=== PATIENT | female | born 1990 | race Caucasian/White ===

== ENCOUNTER 2017-01-24 18:47 | Emergency (ER) | payer OTHER ==
[~2017-01-24] VITALS: Ht 177.8 cm; Wt 75.9 kg
[~2017-01-24 18:47] MED LIST: CARBAMAZEPINE100 MG PO; ENDOCET 5-3251 EACH PO; EXCEDRIN MIGRA1 EAC3 PO; IBUPROFEN800 MG PO; PROAIR HFA8.5 GM AEROSOL; PROAIR HFA8.5 GM IH
[2017-01-24 19:58] LABS: HEMATOCRIT 44.6 % (36.0-46.0); MCH 29.8 PG (29.0-34.0); MCV 90.5 FL (83-99); PLATELET COUNT 203 K/uL (156-360); RBC DIS.WIDTH-SD 43.1 % (39-53); RED BLOOD COUNT 4.93 M/uL (3.80-5.20); WHITE BLOOD COUNT 5.5 K/uL (4.1-10.2)
[2017-01-24 20:29] LABS: CHLORIDE 105 mEq/L (99-109); SODIUM 139 mEq/L (136-147)
[2017-01-24 20:32] LABS: GLUCOSE 90 mg/dL (70-99)
[2017-01-24 20:33] LABS: ANION GAP 9 MEQ/L (2-14)
[2017-01-24 20:34] LABS: TOTAL BILIRUBIN 0.3 mg/dL (0.0-1.0)
[2017-01-24 20:35] LABS: ALKALINE PHOSPHATASE 76 IU/L (3-129); GFR ESTIMATE (CALCULATED) > 59 mL/min/
[2017-01-24 20:36] LABS: UREA NITROGEN (BUN) 8 mg/dL (9-23)
[2017-01-24 20:48] LABS: QUANTITATIVE HCG < 4.0 MIU/ML
[2017-01-24] MEDS ORDERED: NAPROXEN500 MG PO (20:58)
[2017-01-24 21:42] VITALS: BP 111/73
== END 2017-01-24 21:45 | disposition home or self-care (01) ==
LOC: EXP 18:47 → EME 18:47 → EXP 21:45
PROVIDERS: Physician Assistant
DX: R07.89 Other chest pain (principal); J45.909 Unspecified asthma, uncomplicated; F17.200 Nicotine dependence, unspecified, uncomplicated
CPT/HCPCS: 71020; 80053; 84702; 85027; 93005; 99281; 99284

== ENCOUNTER 2017-07-23 06:36 | Emergency (ER) | payer OTHER ==
[~2017-07-23] VITALS: Ht 172.7 cm; Wt 77.8 kg
[~2017-07-23 06:36] MED LIST changes: +NAPROXEN500 MG PO
[2017-07-23] MEDS ORDERED: ZOFRAN ODT4 MG PO (07:46)
[2017-07-23 08:00] VITALS: BP 126/65
== END 2017-07-23 08:01 | disposition home or self-care (01) ==
LOC: EME 06:36
DX: S09.8XXA Other specified injuries of head, initial encounter (principal); M54.2 Cervicalgia; W19.XXXA Unspecified fall, initial encounter; F17.200 Nicotine dependence, unspecified, uncomplicated
CPT/HCPCS: 70450; 99281; 99283